=== PATIENT | female | born 1950 | race Caucasian/White ===

== ENCOUNTER 2023-08-03 22:22 | Emergency (ER) | payer MEDICARE ==
[~2023-08-03] VITALS: Ht 157.5 cm; Wt 64.9 kg
[2023-08-04] MEDS ORDERED: DOXY-457 PO (02:37)
[2023-08-04] MEDS: ondansetron 4mg rapidly disintigrating tab PO ONE (02:41)
[2023-08-04] MEDS: DOXYCYCLINE 100MG CAPSULE PO STA (02:41)
[2023-08-04 02:48] VITALS: BP 157/88; PULSE 70; RESP 16; TEMP 98.6; O2SAT 98
== END 2023-08-04 02:49 | disposition home or self-care (01) ==
LOC: ER 22:22
DX: S80.861A Insect bite (nonvenomous), right lower leg, initial encounter (principal); W57.XXXA Bitten or stung by nonvenomous insect and other nonvenomous arthropods, initial encounter; Y93.01 Activity, walking, marching and hiking; Y92.89 Other specified places as the place of occurrence of the external cause; Y99.8 Other external cause status
CPT/HCPCS: 10060; 99283